=== PATIENT | female | born 1945 | race Caucasian/White ===

== ENCOUNTER → 2016-09-23 | Outpatient (CLI) | payer MEDICARE, OTHER | LOC: MAMO 14:50 | DX: Z12.31 Encounter for screening mammogram for malignant neoplasm of breast (principal); Z90.710 Acquired absence of both cervix and uterus | CPT/HCPCS: G0202 ==

== ENCOUNTER → 2016-12-10 | Outpatient (CLI) | payer MEDICARE, OTHER ==
[2016-12-10 10:41] LABS: BUN/CREATININE RATIO 20 (0-10)
== END ==
LOC: LAB 09:42
PROVIDERS: Internal Medicine Nephrology
DX: R80.9 Proteinuria, unspecified (principal); E55.9 Vitamin D deficiency, unspecified
CPT/HCPCS: 36415; 80053; 82570; 84156

== ENCOUNTER → 2020-08-10 | Outpatient (CLI) | payer MEDICARE ==
[~2020-08-10] MED LIST: ASPIRIN EC81 MG PO; CARVEDILOL12.5 MG PO; COREG 12.5MG12.5 MG PO; ECOTRIN81 MG PO; FLONASE 0.05% N16 GM; GLUCOPHAGE1000 MG PO; IBUPROFEN600 MG PO; IRON PO; LEVOCETIRIZINE D5 MG PO; LEXAPRO10 MG PO; LEXAPRO20 MG PO; LIPITOR TAB 2020 MG PO; LISINOPRIL10 MG PO; MAGOX 400400 MG PO; METFORMIN HCL1000 MG PO; OMEPRAZOLE20 M1 PO; OMEPRAZOLE20 MG PO; PERCOCET 5/325 T1 EA PO; VIT B12 PO; VITAMIN B-121000 MCG PO; VITAMIN D35000 UNI1 PO; XYZAL5 MG PO; ZESTRIL40 MG PO
== END ==
LOC: KOH-I 09:08
DX: M54.5 Low back pain (principal); M25.50 Pain in unspecified joint; M51.36 Other intervertebral disc degeneration, lumbar region; I70.0 Atherosclerosis of aorta; M16.0 Bilateral primary osteoarthritis of hip; M47.816 Spondylosis without myelopathy or radiculopathy, lumbar region
CPT/HCPCS: 72110; 73522

== ENCOUNTER → 2020-08-21 | Outpatient (CLI) | payer OTHER | LOC: KOH-I 08:00 | DX: R10.9 Unspecified abdominal pain (principal); R51.9 Headache, unspecified; K76.9 Liver disease, unspecified; R90.89 Other abnormal findings on diagnostic imaging of central nervous system | CPT/HCPCS: 70450; 76700 ==

== ENCOUNTER → 2020-08-22 | Outpatient (CLI) | payer MEDICARE, OTHER | LOC: EXRD 09:09 | DX: I70.0 Atherosclerosis of aorta (principal); Z53.8 Procedure and treatment not carried out for other reasons ==

== ENCOUNTER → 2020-10-09 | Outpatient (CLI) | payer MEDICARE, OTHER | LOC: KOH-I 10:54 | DX: M54.2 Cervicalgia (principal); M50.30 Other cervical disc degeneration, unspecified cervical region; M48.02 Spinal stenosis, cervical region | CPT/HCPCS: 72050 ==

== ENCOUNTER → 2021-01-14 | Outpatient (CLI) | payer MEDICARE, OTHER | LOC: KOH-I 13:00 | DX: M54.2 Cervicalgia (principal); R09.89 Other specified symptoms and signs involving the circulatory and respiratory systems; M47.812 Spondylosis without myelopathy or radiculopathy, cervical region; M43.22 Fusion of spine, cervical region; M48.02 Spinal stenosis, cervical region; M25.78 Osteophyte, vertebrae; M48.03 Spinal stenosis, cervicothoracic region | CPT/HCPCS: 72141; 93880 ==

== ENCOUNTER → 2021-02-07 | Outpatient (CLI) | payer MEDICARE, OTHER | LOC: KOH-I 01-28 08:00 | DX: K75.81 Nonalcoholic steatohepatitis (NASH) (principal); K82.4 Cholesterolosis of gallbladder | CPT/HCPCS: 76705 ==

== ENCOUNTER → 2021-03-21 | Outpatient (CLI) | payer MEDICARE, OTHER | LOC: KOH-I 08:25 | DX: R51.9 Headache, unspecified (principal); J34.89 Other specified disorders of nose and nasal sinuses | CPT/HCPCS: 70450 ==

== ENCOUNTER → 2021-04-24 | Outpatient (CLI) | payer MEDICARE, OTHER ==
[~2021-04-24] MED LIST changes: +AMLODIPINE BESYL5 MG PO; +APPLE CIDER PO; +CETIRIZINE HCL10 MG PO; -LEXAPRO10 MG PO; -LISINOPRIL10 MG PO; +LISINOPRIL20 MG PO; +MACROBID 100 M100 M1 PO; +MELOXICAM15 MG PO; +ONE DAILY COMP1 EACH PO
== END ==
LOC: CT 11:51
DX: Z01.818 Encounter for other preprocedural examination (principal); J34.89 Other specified disorders of nose and nasal sinuses; M48.02 Spinal stenosis, cervical region; M47.12 Other spondylosis with myelopathy, cervical region; M50.00 Cervical disc disorder with myelopathy, unspecified cervical region
CPT/HCPCS: 36415; 70498; 72125; 82565; Q9967

== ENCOUNTER → 2021-04-25 | Outpatient (CLI) | payer MEDICARE, OTHER ==
[2021-04-25 09:39] LABS: HEMOGLOBIN 12.1 gm/dl (12.3-15.3); RED BLOOD COUNT 3.86 M/UL (4.00-5.10); WHITE BLOOD COUNT 7.7 K/UL (4.5-11.0)
[2021-04-25 09:54] LABS: BUN/CREATININE RATIO 14 (0-10)
== END ==
LOC: OPSV2 07:54 → EDSTATUS 08:00
PROVIDERS: Orthopaedic Surgery
DX: Z01.818 Encounter for other preprocedural examination (principal); M50.00 Cervical disc disorder with myelopathy, unspecified cervical region; I10 Essential (primary) hypertension; R94.31 Abnormal electrocardiogram [ECG] [EKG]
CPT/HCPCS: 36415; 71046; 80048; 81001; 83036; 85025; 87077; 87081; 87086; 87186; 93005

== ENCOUNTER → 2021-05-07 | Outpatient (CLI) | payer MEDICARE, OTHER ==
[~2021-05-07] MED LIST changes: +REPAGLINIDE1 MG PO
[2021-05-07 11:20] LABS: BUN/CREATININE RATIO 9 (0-10)
== END ==
LOC: LAB 09:52
PROVIDERS: Orthopaedic Surgery
DX: Z01.812 Encounter for preprocedural laboratory examination (principal); E11.9 Type 2 diabetes mellitus without complications; I10 Essential (primary) hypertension; M54.12 Radiculopathy, cervical region
CPT/HCPCS: 36415; 80048; 85610; 85730; 86850; 86900; 86901

== ENCOUNTER 2021-05-08 05:42 | Inpatient (IN) | payer MEDICARE, OTHER ==
[~2021-05-08] VITALS: Ht 170.2 cm; Wt 77.1 kg
[~2021-05-08 05:42] MED LIST changes: -REPAGLINIDE1 MG PO
[2021-05-08] MEDS ORDERED: CARVEDILOL12.5 MG PO (06:30)
[2021-05-08] MEDS ORDERED: REPAGLINIDE1 MG PO (06:32)
[2021-05-08 16:28] LABS: HEMOGLOBIN 9.8 gm/dl (12.3-15.3); RED BLOOD COUNT 3.18 M/UL (4.00-5.10); WHITE BLOOD COUNT 8.2 K/UL (4.5-11.0)
[2021-05-08 16:54] LABS: BUN/CREATININE RATIO 8 (0-10)
[2021-05-08] MEDS ORDERED: MACROBID 100 M100 M1 PO (18:01)
[2021-05-08 22:09] LABS: BUN/CREATININE RATIO 9 (0-10)
[2021-05-09 05:20] LABS: HEMOGLOBIN 8.2 gm/dl (12.3-15.3)
[2021-05-09 05:22] LABS: RED BLOOD COUNT 2.65 M/UL (4.00-5.10); WHITE BLOOD COUNT 10.6 K/UL (4.5-11.0)
[2021-05-09 06:00] LABS: BUN/CREATININE RATIO 10 (0-10)
[2021-05-09 12:23] LABS: BUN/CREATININE RATIO 11 (0-10)
[2021-05-10 05:04] LABS: HEMOGLOBIN 7.7 gm/dl (12.3-15.3); RED BLOOD COUNT 2.53 M/UL (4.00-5.10); WHITE BLOOD COUNT 9.2 K/UL (4.5-11.0)
[2021-05-10 05:22] LABS: BUN/CREATININE RATIO 11 (0-10)
[2021-05-11 04:17] LABS: BUN/CREATININE RATIO 11 (0-10)
[2021-05-11 04:57] LABS: RED BLOOD COUNT 2.65 M/UL (4.00-5.10); WHITE BLOOD COUNT 9.3 K/UL (4.5-11.0)
[2021-05-11] MEDS ORDERED: CALCIUM500 M1 PO (08:41)
[2021-05-12 08:16] LABS: HEMOGLOBIN 8.6 gm/dl (12.3-15.3); RED BLOOD COUNT 2.89 M/UL (4.00-5.10); WHITE BLOOD COUNT 10.7 K/UL (4.5-11.0)
[2021-05-12 09:49] LABS: BUN/CREATININE RATIO 14 (0-10)
[2021-05-13 07:10] LABS: HEMOGLOBIN 8.1 gm/dl (12.3-15.3); RED BLOOD COUNT 2.66 M/UL (4.00-5.10); WHITE BLOOD COUNT 10.5 K/UL (4.5-11.0)
[2021-05-13 07:29] LABS: BUN/CREATININE RATIO 12 (0-10)
== END 2021-05-13 12:43 | disposition home or self-care (01) | DRG 460 ==
LOC: OR 05:42 → CCU 16:57 → M/S 05-11 17:51
PROVIDERS: Internal Medicine; ADMIT Orthopaedic Surgery
PROC: 0RG607J Fusion of Thoracic Vertebral Joint with Autologous Tissue Substitute, Posterior Approach, Anterior Column, Open Approach (ICD-10-PCS; 2021-05-08)
PROC: 0RG407J Fusion of Cervicothoracic Vertebral Joint with Autologous Tissue Substitute, Posterior Approach, Anterior Column, Open Approach (ICD-10-PCS; 2021-05-08)
PROC: 00NW0ZZ Release Cervical Spinal Cord, Open Approach (ICD-10-PCS; 2021-05-08)
PROC: 4A11X4G Monitoring of Peripheral Nervous Electrical Activity, Intraoperative, External Approach (ICD-10-PCS; 2021-05-08)
PROC: 0RG207J Fusion of 2 or more Cervical Vertebral Joints with Autologous Tissue Substitute, Posterior Approach, Anterior Column, Open Approach (ICD-10-PCS; principal; 2021-05-08 07:30)
DX: M50.00 Cervical disc disorder with myelopathy, unspecified cervical region (principal); D62 Acute posthemorrhagic anemia; Z20.822 Contact with and (suspected) exposure to COVID-19; R26.81 Unsteadiness on feet; I67.1 Cerebral aneurysm, nonruptured; M54.12 Radiculopathy, cervical region; E11.9 Type 2 diabetes mellitus without complications; F41.9 Anxiety disorder, unspecified; J32.9 Chronic sinusitis, unspecified; F32.A Depression, unspecified; E78.5 Hyperlipidemia, unspecified; I10 Essential (primary) hypertension; G89.29 Other chronic pain; G47.30 Sleep apnea, unspecified; E83.51 Hypocalcemia; H53.8 Other visual disturbances; K75.81 Nonalcoholic steatohepatitis (NASH); K21.9 Gastro-esophageal reflux disease without esophagitis; R29.6 Repeated falls; Z79.82 Long term (current) use of aspirin; Z79.01 Long term (current) use of anticoagulants; Z90.710 Acquired absence of both cervix and uterus; Z88.2 Allergy status to sulfonamides; Z83.3 Family history of diabetes mellitus; Z86.73 Personal history of transient ischemic attack (TIA), and cerebral infarction without residual deficits; Z79.4 Long term (current) use of insulin; Z91.81 History of falling
CPT/HCPCS: 36415; 36600; 71045; 72040; 72050; 76000; 80048; 80053; 80076; 82009; 82040; 82550; 82553; 82803; 82962; 83605; 83735; 83874; 83970; 84484; 85025; 85027; 85610; 85730; 86850; 86900; 86901; 87040; 93005; 94664; 97116-GP-CQ; 97162; 97165; 97530-GP-CQ; 97535; 99284; C1713; C1762; J0610; J0690; J1040; J1100; J1200; J1885; J2370; J2405; J2704; J2710; J3010; J3370; J3475; J7030; J7040; J7120; U0003

== ENCOUNTER → 2021-08-20 | Outpatient (CLI) | payer MEDICARE ==
[~2021-08-20] MED LIST changes: +CALCIUM500 M1 PO; +REPAGLINIDE1 MG PO
== END ==
LOC: US 09:11
DX: K75.81 Nonalcoholic steatohepatitis (NASH) (principal); K82.4 Cholesterolosis of gallbladder
CPT/HCPCS: 36415; 76705; 80076

== ENCOUNTER 2021-09-07 19:01 | Emergency (ER) | payer MEDICARE, OTHER ==
[2021-09-07] MEDS ORDERED: AMOX TR-K CLV1 EAC4 PO (21:35)
== END 2021-09-07 22:11 | disposition home or self-care (01) ==
LOC: ER1 19:01
DX: S16.1XXA Strain of muscle, fascia and tendon at neck level, initial encounter (principal); S00.83XA Contusion of other part of head, initial encounter; S60.221A Contusion of right hand, initial encounter; S70.02XA Contusion of left hip, initial encounter; S70.01XA Contusion of right hip, initial encounter; S40.011A Contusion of right shoulder, initial encounter; J32.9 Chronic sinusitis, unspecified; E11.9 Type 2 diabetes mellitus without complications; I10 Essential (primary) hypertension; Z88.2 Allergy status to sulfonamides; W01.10XA Fall on same level from slipping, tripping and stumbling with subsequent striking against unspecified object, initial encounter; Y92.009 Unspecified place in unspecified non-institutional (private) residence as the place of occurrence of the external cause
CPT/HCPCS: 70450; 70486; 72125; 72170; 73030; 73130; 99284

== ENCOUNTER → 2021-11-15 | Outpatient (CLI) | payer MEDICARE, OTHER ==
[~2021-11-15] MED LIST changes: +AMOX TR-K CLV1 EAC4 PO
== END ==
LOC: US 11-01 08:30
DX: R09.89 Other specified symptoms and signs involving the circulatory and respiratory systems (principal); R01.1 Cardiac murmur, unspecified; I27.20 Pulmonary hypertension, unspecified; I70.0 Atherosclerosis of aorta; I08.1 Rheumatic disorders of both mitral and tricuspid valves
CPT/HCPCS: ECHO; 93306; 93880

== ENCOUNTER 2021-12-26 19:07 | Inpatient (IN) | payer MEDICARE, OTHER ==
[~2021-12-26] VITALS: Ht 162.6 cm; Wt 63.2 kg
[2021-12-26 20:01] LABS: RED BLOOD COUNT 3.6 M/UL (4.00-5.10); WHITE BLOOD COUNT 15.3 K/UL (4.5-11.0)
[2021-12-26 20:27] LABS: BUN/CREATININE RATIO 24 (0-10)
[2021-12-27 06:40] LABS: HEMOGLOBIN 9.8 gm/dl (12.3-15.3)
[2021-12-27 06:45] LABS: RED BLOOD COUNT 3.14 M/UL (4.00-5.10); WHITE BLOOD COUNT 11.3 K/UL (4.5-11.0)
[2021-12-27 07:11] LABS: BUN/CREATININE RATIO 18 (0-10)
[2021-12-27] MEDS ORDERED: MELOXICAM15 MG PO (10:02)
[2021-12-27] MEDS ORDERED: OMEPRAZOLE20 MG PO (10:02)
[2021-12-28 01:54] LABS: HEMOGLOBIN 9.5 gm/dl (12.3-15.3); RED BLOOD COUNT 3.19 M/UL (4.00-5.10); WHITE BLOOD COUNT 9.5 K/UL (4.5-11.0)
[2021-12-28 02:21] LABS: BUN/CREATININE RATIO 15 (0-10)
[2021-12-29 06:02] LABS: HEMOGLOBIN 9.2 gm/dl (12.3-15.3); RED BLOOD COUNT 3.04 M/UL (4.00-5.10)
[2021-12-29 06:17] LABS: WHITE BLOOD COUNT 5.3 K/UL (4.5-11.0)
[2021-12-29 06:21] LABS: BUN/CREATININE RATIO 9 (0-10)
[2021-12-29] MEDS ORDERED: CEFDINIR300 MG PO (10:35)
== END 2021-12-29 09:45 | disposition home or self-care (01) | DRG 871 ==
LOC: ER1 19:07 → MED SURG 4 21:31 → CDU 21:31 → MED SURG 4 22:31
PROVIDERS: Internal Medicine; ADMIT Internal Medicine
DX: A41.9 Sepsis, unspecified organism (principal); G93.41 Metabolic encephalopathy; N39.0 Urinary tract infection, site not specified; M62.82 Rhabdomyolysis; G45.9 Transient cerebral ischemic attack, unspecified; I10 Essential (primary) hypertension; E11.9 Type 2 diabetes mellitus without complications; M50.90 Cervical disc disorder, unspecified, unspecified cervical region; K76.0 Fatty (change of) liver, not elsewhere classified; F41.9 Anxiety disorder, unspecified; Z20.822 Contact with and (suspected) exposure to COVID-19; F32.A Depression, unspecified; B96.1 Klebsiella pneumoniae [K. pneumoniae] as the cause of diseases classified elsewhere; H91.90 Unspecified hearing loss, unspecified ear; R65.20 Severe sepsis without septic shock; E87.6 Hypokalemia; E83.42 Hypomagnesemia; E78.5 Hyperlipidemia, unspecified; K21.9 Gastro-esophageal reflux disease without esophagitis; Z88.2 Allergy status to sulfonamides; Z98.890 Other specified postprocedural states; Z83.3 Family history of diabetes mellitus; Z82.3 Family history of stroke; Z79.82 Long term (current) use of aspirin; Z79.84 Long term (current) use of oral hypoglycemic drugs
CPT/HCPCS: 36415; 70450; 70496; 70498; 70551; 71045; 73090; 80048; 80053; 81001; 82009; 82140; 82550; 82553; 82962; 83036; 83605; 83690; 83735; 84100; 84439; 84443; 84484; 85025; 87077; 87086; 87186; 93005; 96374; 97116; 97162; 97166; 97530; 99285; J0696; J1650; J2543; J3475; J3480; Q9967; U0002

== ENCOUNTER → 2022-02-19 | Outpatient (CLI) | payer MEDICARE, OTHER ==
[~2022-02-19] MED LIST changes: +CEFDINIR300 MG PO
== END ==
LOC: EXRD 09:30
DX: R80.9 Proteinuria, unspecified (principal)
CPT/HCPCS: 76775